=== PATIENT | female | born 1980 | race Caucasian/White ===

== ENCOUNTER → 2016-10-28 | Outpatient (CLI) | payer BC ==
[2016-10-28 08:07] LABS: Basophils % (A) 0 %; CH 30.9; CHCM 34.1; Eosinophils # (A) 0.1 k/uL (0-0.7); Eosinophils % (A) 2 %; HCT 39.3 % (34.0-46.0); HDW 2.49; Luc % (Auto) 2; Lymphocytes # (A) 1.8 k/uL (1.0-4.8); Lymphocytes % (A) 37 %; MCV 90.9 fL (80.0-100.0); Mean Platelet Volume 6.3; Monocytes # (A) 0.3 k/uL (0-1.0); Monocytes % (A) 6 %; Neutrophils # (A) 2.6 k/uL (1.3-7.7); Neutrophils % (A) 53 %; RBC 4.32 m/uL (3.80-5.40); RDW 12.2 % (11.5-15.5); WBC 4.9 k/uL (3.8-10.6); WBC (Perox) 5.43
[2016-10-28 08:18] LABS: ALT 49 U/L (9-52); AST 37 U/L (14-36); Alkaline Phosphatase 64 U/L (38-126); Anion Gap 12 mmol/L; Blood Urea Nitrogen 11 mg/dL (7-17); Calcium 9.5 mg/dL (8.4-10.2); Carbon Dioxide 28 mmol/L (22-30); Chloride 104 mmol/L (98-107); Cholesterol 206 mg/dL (<200); Glucose 90 mg/dL (74-99); HDL Cholesterol 61 mg/dL (40-60); Non-African American GFR(MDRD) >60 (>60 ml/min/1.73 sqM); Potassium 4.2 mmol/L (3.5-5.1); Sodium 144 mmol/L (137-145); Total Bilirubin 0.5 mg/dL (0.2-1.3); Total Protein 7.6 g/dL (6.3-8.2); Triglycerides 78 mg/dL (<150)
== END | disposition home or self-care (01) ==
LOC: LABWHC1 07:32
PROVIDERS: ATTEND Pediatrics
DX: Z00.01 Encounter for general adult medical examination with abnormal findings (principal); Z13.220 Encounter for screening for lipoid disorders
CPT/HCPCS: 36415; 80053; 80061; 85025

== ENCOUNTER → 2020-06-20 | Outpatient (CLI) | payer BC ==
--- NOTE | 2020-06-26 09:21 | MM ---
Reason for exam: screening (asymptomatic). Last mammogram was performed 4 years and 11 months ago. History: Benign excisional biopsy of the right breast, 2007. Taking hormonal contraceptives for 10 years beginning at age 17. Physical Findings: A clinical breast exam by your physician is recommended on an annual basis and results should be correlated with mammographic findings. MG 3D Screening Mammo W/Cad Bilateral CC, MLO, and XCCL view(s) were taken. Prior study comparison: July 09, 2015, mammogram. The breast tissue is heterogeneously dense. This may lower the sensitivity of mammography. No significant changes when compared with prior studies. ASSESSMENT: Negative, BI-RAD 1 RECOMMENDATION: Routine screening mammogram of both breasts in 1 year.
== END | disposition home or self-care (01) ==
LOC: RADMAMWWP 07:01
PROVIDERS: ATTEND Obstetrics & Gynecology
DX: Z12.31 Encounter for screening mammogram for malignant neoplasm of breast (principal)
CPT/HCPCS: 77063; 77067

== ENCOUNTER → 2020-09-17 | Outpatient (CLI) | payer BC ==
--- NOTE | 2020-09-17 12:37 | XR ---
EXAMINATION TYPE: XR chest 2V DATE OF EXAM: 09/17/2020 COMPARISON: NONE TECHNIQUE: PA and lateral views submitted. HISTORY: Cough FINDINGS: The lungs are clear and there is no pneumothorax, pleural effusion, or focal pneumonia. Heart size normal. No overt failure. IMPRESSION: 1. No acute process.
== END | disposition home or self-care (01) ==
LOC: RADXRMAIN 12:08
PROVIDERS: ATTEND Pediatrics
DX: R05 Cough (principal)
CPT/HCPCS: 71046

== ENCOUNTER → 2020-12-10 | Outpatient (CLI) | payer BC ==
--- NOTE | 2020-12-10 14:18 | MR ---
EXAMINATION TYPE: MR brain and iac wo/w con DATE OF EXAM: 12/10/2020 COMPARISON: CT brain February 27, 2014 HISTORY: Headache. Left-sided hearing loss. Otalgia for 3 months. TECHNIQUE: Multiplanar, multisequence images of the brain and brainstem along with internal auditory canals are all performed without and with IV contrast, utilizing 6,5 mL intravenous Gadavist . FINDINGS: Diffusion weighted images demonstrate no evidence of a recent infarct or other diffusion ab normality. There is no extra-axial fluid collection or significant white matter signal abnormality. The ventricular system and cisternal spaces are normal in size and appearance. The brain volume is age appropriate. Midline structures demonstrate normal morphology. The craniocervical junction appears within normal limits. Post contrast images demonstrate no abnormal enhancement. The dural venous sinuses appear pa tent. There is distortion from bilateral globes noted. Visualized paranasal sinuses are clear. No suspicious fluid signal bilateral mastoid air cells. Vestibulocochlear complexes are symmetric and felt within normal limits. No suspicious enhancing cerebellopontine angle mass identified bilaterall y. IMPRESSION: Fairly unremarkable study.
== END | disposition home or self-care (01) ==
LOC: RADMRIMAIN 07:07
PROVIDERS: ATTEND Nurse Practitioner Family
DX: R51.9 Headache, unspecified (principal); H91.90 Unspecified hearing loss, unspecified ear; H93.3X9 Disorders of unspecified acoustic nerve
CPT/HCPCS: 70553; A9585

== ENCOUNTER → 2021-08-11 | Outpatient (CLI) | payer BC ==
--- NOTE | 2021-08-12 10:27 | MM ---
Reason for exam: screening (asymptomatic). Last mammogram was performed 1 year and 2 months ago. History: Benign excisional biopsy of the right breast, 2007. Took hormonal contraceptives for 10 years beginning at age 17. Physical Findings: A clinical breast exam by your physician is recommended on an annual basis and results should be correlated with mammographic findings. MG 3D Screening Mammo W/Cad Bilateral CC and MLO view(s) were taken. Prior study comparison: June 20, 2020, bilateral MG 3d screening mammo w/cad. July 09, 2015, mammogram. The breast tissue is heterogeneously dense. This may lower the sensitivity of mammography. Focal asymmetry upper outer right breast zone B. ASSESSMENT: Incomplete: need additional imaging evaluation, BI-RAD 0 RECOMMENDATION: Special view mammogram of the right breast. If lesion persists on supplemental views, image directed ultrasound is recommended. [facility] will attempt to contact patient to return for supplemental views and ultrasound if indicated.
== END | disposition home or self-care (01) ==
LOC: RADMAMWWP 07:14
PROVIDERS: ATTEND Obstetrics & Gynecology
DX: Z12.31 Encounter for screening mammogram for malignant neoplasm of breast (principal)
CPT/HCPCS: 77063; 77067

== ENCOUNTER → 2021-08-13 | Outpatient (CLI) | payer BC ==
--- NOTE | 2021-08-13 13:35 | MM ---
Reason for exam: additional evaluation requested from abnormal screening. Last mammogram was performed less than 1 month ago. History: Benign excisional biopsy of the right breast, 2007. Took hormonal contraceptives for 10 years beginning at age 17. Physical Findings: Nurse did not find any significant physical abnormalities on exam. MG Work Up Mamm w CAD RT Spot compression CC, spot compression MLO, and LM view(s) were taken of the right breast. Prior study comparison: August 11, 2021, bilateral MG 3d screening mammo w/cad. June 20, 2020, bilateral MG 3d screening mammo w/cad. Nodularity persists upper outer quadrant 3.6cm from nipple. These results were verbally communicated with the patient and result sheet given to the patient on 08/13/21. ASSESSMENT: Incomplete: need additional imaging evaluation, BI-RAD 0 RECOMMENDATION: Ultrasound of the right breast.
--- NOTE | 2021-08-13 13:36 | USB ---
Reason for exam: additional evaluation requested from abnormal screening. History: Benign excisional biopsy of the right breast, 2007. Took hormonal contraceptives for 10 years beginning at age 17. US Breast Workup Limited RT Right limited breast ultrasound including focal area of concern, retroareolar and axilla demonstrates a 1.1 x 1.2 x 0.6cm lymph node at the axilla. These results were verbally communicated with the patient and result sheet given to the patient on 08/13/21. ASSESSMENT: Benign, BI-RAD 2 RECOMMENDATION: Return to routine screening mammogram schedule for both breasts.
== END | disposition home or self-care (01) ==
LOC: RADMAMWWP 07:00
PROVIDERS: ATTEND Obstetrics & Gynecology
DX: R92.8 Other abnormal and inconclusive findings on diagnostic imaging of breast (principal)
CPT/HCPCS: 77065

== ENCOUNTER → 2022-10-26 | Outpatient (CLI) | payer BC ==
--- NOTE | 2022-10-27 07:35 | MM ---
Reason for Exam: Screening (asymptomatic). Last mammogram was performed 1 year(s) and 3 month(s) ago. Patient History: Menarche at age 15. First Full-Term at age 27. Premenopausal. Hormonal Contraceptives, starting at age 17 for 10 years. 2007, Benign Excisional Biopsy on the right side. Last menstrual period: 10/22/2022 Risk Values: Maxine 5 year model risk: 1.1%. NCI Lifetime model risk: 12.1%. Prior Study Comparison: 07/09/2015 Screening Mammogram, Unknown. 06/20/2020 Bilateral Screening Mammogram, [facility]. 08/11/2021 Bilateral Screening Mammogram, [facility]. 08/13/2021 Right Diagnostic Mammogram, [facility]. Tissue Density: The breast tissue is heterogeneously dense. This may lower the sensitivity of mammography. Findings: Analyzed By CAD. There is no suspicious group of microcalcifications or new suspicious mass in either breast. Overall Assessment: Negative, BI-RAD 1 Management: Screening Mammogram of both breasts in 1 year. A clinical breast exam by your physician is recommended on an annual basis and results should be correlated with mammographic findings. [facility] will attempt to contact patient to return for supplemental views and ultrasound if indicated. Electronically signed and approved by: Morgan Candelaria DO
== END | disposition home or self-care (01) ==
LOC: RADMAMWWP 07:21
PROVIDERS: ATTEND Obstetrics & Gynecology
DX: Z12.31 Encounter for screening mammogram for malignant neoplasm of breast (principal); Z98.890 Other specified postprocedural states
CPT/HCPCS: 77063; 77067

== ENCOUNTER 2023-08-25 07:47 | Day surgery (SDC) | payer BC ==
--- NOTE | 2023-08-24 20:27 | P.HPOB ---
History of Present Illness H&P Date: 08/24/23 Chief Complaint: Menorrhagia with regular cycle, family planning This is a 43 y.o. female, 2, para 1, who presents for dilatation and curettage with hysteroscopy and Novasure endometrial ablation due to menorrhagia with regular cycle and laparoscopic bilateral salpingectomy for family planning. She complains of heavy, painful, and sometimes irregular menses. Menses are occurring about every 3-4 weeks. Pelvic ultrasound showed uterus measuring 7.3 x 4 x 3.8 cm with endometrial thickness of 0.5 cm and normal bilateral ovaries. OB Hx: . History of 1 vaginal delivery at term and 1 miscarriage. Care Rep Hx: No history of STDs Social Hx: . Works at [employer] Review of Systems Constitutional: Denies chills, Denies fever Eyes: denies blurred vision, denies pain Ears, nose, mouth and throat: Denies headache, Denies sore throat Cardiovascular: Denies chest pain, Denies shortness of breath Respiratory: Denies cough Gastrointestinal: Reports bloating, Reports constipation, Reports diarrhea, Reports heartburn, Reports nausea (occasional), Denies abdominal pain Genitourinary: Reports dysmenorrhea, Reports menorrhagia Menstruation: Reports period heavy Musculoskeletal: Denies myalgias Integumentary: Denies pruritus, Denies rash Neurological: Denies numbness, Denies weakness Psychiatric: Reports anxiety, Denies depression Past Medical History Past Medical History: GERD/Reflux Additional Past Medical History / Comment(s): hiatal hernia History of Any Multi-Drug Resistant Organisms: None Reported Past Surgical History: Breast Surgery Additional Past Surgical History / Comment(s): d&c, oral, R breast bx/benign Past Anesthesia/Blood Transfusion Reactions: Postoperative Nausea & Vomiting (PONV) Past Psychological History: Anxiety Smoking Status: Never smoker Past Alcohol Use History: Occasional Past Drug Use History: None Reported - Past Family History Mother Family Medical History: Cancer, Hypertension Father Family Medical History: Hypertension Medications and Allergies Home Medications Medication Instructions Recorded Confirmed Type Omeprazole [PriLOSEC] 20 mg PO AC-BRKFST 02/27/14 08/18/23 History FLUoxetine HCL [PROzac] 10 mg PO QAM 08/18/23 08/18/23 History Ferrous Sulfate [Iron (65 MG 325 mg PO QAM 08/18/23 08/18/23 History Elemental)] Magnesium 250 mg PO QAM 08/18/23 08/18/23 History Multivitamin [Multivitamins Adult 1 tab PO QAM 08/18/23 08/18/23 History Gummies] Lavelle-3/Dha/Epa/Fish Oil [Fish Oil 1,200 mg PO QAM 08/18/23 08/18/23 History EC 1,200 mg Softgel] Allergies Allergy/AdvReac Type Severity Reaction Status Date / Time No Known Allergies Allergy Verified 08/18/23 12:47 Exam Osteopathic Statement: *. No significant issues noted on an osteopathic structural exam other than those noted in the History and Physical/Consult. HEENT: within normal limits Heart: regular rate and rhythm Lungs: clear to auscultation bilaterally Abdomen: soft, non-tender Pelvic: uterus anteverted, non-tender, no adnexal masses or tenderness Extremities: negative Salvador's Assessment and Plan (1) Menorrhagia with regular cycle Status: Acute Code(s): N92.0 - EXCESSIVE AND FREQUENT MENSTRUATION WITH REGULAR CYCLE SNOMED Code(s): 019442102 (2) Family planning Status: Acute Code(s): Z30.09 - ENCOUNTER FOR OTH GENERAL CNSL AND ADVICE ON CONTRACEPTION SNOMED Code(s): 296840639 Plan: Proceed with dilatation and curettage with hysteroscopy and Novasure endometrial ablation and laparoscopic bilateral salpingectomy.
[~2023-08-25 07:47] MED LIST: Pre Op ABX Message 1 EACH MISC MISCELLANE ONE
[2023-08-25] MEDS ORDERED: LACTATED RINGERS 1,000 ML IV ONE (08:11)
[2023-08-25] MEDS ORDERED: LACTATED RINGERS 1,000 ML IV SCH (08:15)
[2023-08-25] MEDS ORDERED: DEXAMETHASONE SOD PHOSPHATE 4 MG/ML 1 ML VIAL IV ONE (08:15)
[2023-08-25] MEDS ORDERED: ONDANSETRON 4 MG/2 ML VIAL IVP ONE (08:15)
[2023-08-25] MEDS ORDERED: SCOPOLAMINE 1 MG/72 HR PATCH TRANSDERM ONE (08:38)
[2023-08-25] MEDS ORDERED: LIDOCAINE 1% INJ 10MG/ML (20 ML MDV) ONE (09:19)
[2023-08-25] MEDS ORDERED: PROPOFOL 10 MG/ML 20 ML VIAL IV ONE (09:19)
[2023-08-25] MEDS ORDERED: KETOROLAC 15 MG/ML 1 ML VIAL ONE (09:19)
[2023-08-25] MEDS ORDERED: SUCCINYLCHOLINE CHLORIDE 200 MG/10 ML VIAL IV ONE (09:19)
[2023-08-25] MEDS ORDERED: NEOSTIGMINE 1 MG/ML 10 ML VIAL ONE (09:19)
[2023-08-25] MEDS ORDERED: GLYCOPYRROLATE 0.2 MG/ML 2 ML VIAL ONE (09:19)
[2023-08-25] MEDS ORDERED: ROCURONIUM 10 MG/ML (5 ML VIAL) IV ONE (09:19)
[2023-08-25] MEDS ORDERED: MIDAZOLAM 2 MG/2 ML VIAL ONE (09:19)
[2023-08-25] MEDS ORDERED: fentaNYL (PF) 50 MCG/ML 2 ML AMP ONE (09:19)
[2023-08-25] MEDS ORDERED: BUPIVACAINE (PF) 0.5% 30 ML VIAL SQ ONE ×2 (09:48→10:21)
--- NOTE | 2023-08-25 10:29 | P.OP ---
Date of Procedure: 08/25/23 Preoperative Diagnosis: Menorrhagia with regular cycle Family planning Postoperative Diagnosis: Same Procedure(s) Performed: Dilation and curettage with hysteroscopy and NovaSure endometrial ablation Laparoscopic bilateral salpingectomy Anesthesia: SANCHO Surgeon: Stefanie Guerra Estimated Blood Loss (ml): 10 Pathology: other (Endometrial curettings, right and left fallopian tubes) Condition: stable Disposition: same day Indications for Procedure: This is a 43 y.o. female, 2, para 1, who presents for dilatation and curettage with hysteroscopy and Novasure endometrial ablation due to menorrhagia with regular cycle and laparoscopic bilateral salpingectomy for family planning. She complains of heavy, painful, and sometimes irregular menses. Menses are occurring about every 3-4 weeks. Pelvic ultrasound showed uterus measuring 7.3 x 4 x 3.8 cm with endometrial thickness of 0.5 cm and normal bilateral ovaries. Operative Findings: Uterus is anteverted, sounded to 8 cm. Cervix is sounded to 3 cm. Upon hysteroscopy, a dyssynchronous endometrial pattern was noted with possible polyp. Neither tubal ostia is completely visualized. Upon laparoscopy, normal uterus tubes and ovaries are noted. Description of Procedure: The patient is taken to the operating room. She is placed in the dorsal lithotomy position after general anesthesia was given. She is prepped and draped in the normal sterile fashion. Bladder is drained with a catheter and then removed. Pelvic exam is performed under anesthesia. Uterus is found to be anteverted with no adnexal masses. She is placed in slight Trendelenburg position. A right angle retractor is used to visualize the cervix. The anterior lip of the cervix is grasped with an Allis clamp. Cervix is sounded to 3 cm. Uterus is sounded to 8 cm. Cervix is gently dilated with Tang dilators until a hysteroscope could be passed. Hysteroscopy is performed using normal saline. The above noted findings are noted. Next a polyp forceps is introduced. A small amount of tissue was obtained. Next medium-sized size sharp curette was placed. A moderate amount of endometrial curettings were obtained. Next NovaSure array was inserted into the endometrial cavity. Length was set at 5 cm and width was determined to be 3.2 cm. Next cavity assessment was completed and passed on the first try. Next NovaSure array was fired at 88 W for 73 seconds. Next the array was removed, inspected and then discarded. Next the hysteroscope was reinserted. Uniform charring was noted. Pictures were taken. Hysteroscope was removed. Next a kroner uterine manipulator is inserted and balloon is inflated. Allis clamps was removed from the anterior lip of the cervix. Minimal bleeding was noted. All other instruments removed from the vagina. Attention is then turned to the abdomen. A small incision is made approximately 2 cm above the umbilicus and then a 5 mm disposable bladeless trocar is inserted under direct visualization with low-flow gas. Once inside, pneumoperitoneum is achieved. Patient was placed in slight Trendelenburg position. Next a small incision is made in the right side of the abdomen just below the umbilicus level and a 5 mm disposable bladeless trochars inserted under direct visualization. The same area on the left side of the abdomen is also cut with a small incision and then a 5 mm disposable bladeless trochars inserted under direct visu alization. The pelvic contents are inspected. The right fallopian tube was then grasped on the ends with a grasper and LigaSure is then fired along the mesosalpinx and the mesosalpinx is cut with the LigaSure. The entire tube is freed excellent hemostasis is noted. The tube is placed in the cul-de-sac and then the left fallopian tube is identified and grasped on the fimbriated end with a grasper. The LigaSure was then used to cauterize and cut along the mesosalpinx and then the entire tube is removed. Each tube was then pulled through the trocar and removed. Excellent hemostasis is noted. Pictures are taken. Pneumoperitoneum was then released and the trochars were all removed. Incision sites are then closed with 4-0 Vicryl suture in a subcuticular fashion. The incisions are then injected with half percent Marcaine and approximately 7 mL are used. Steri-Strips are placed and all instruments are correct. All sponge counts are correct. The patient is then taken to recovery room in stable condition.
[2023-08-25] MEDS: HYDROmorphone 0.5 MG/0.5 ML SYRINGE IVP PRN ×2 (10:55→11:08)
[2023-08-25 11:08] VITALS: TEMP 97.6
[2023-08-25 12:24] VITALS: BP 141/83; PULSE 74; RESP 16
== END 2023-08-25 12:33 | disposition home or self-care (01) ==
LOC: OR 07:47
PROVIDERS: ATTEND Obstetrics & Gynecology
DX: Z30.2 Encounter for sterilization (principal); N92.0 Excessive and frequent menstruation with regular cycle; K21.9 Gastro-esophageal reflux disease without esophagitis; K44.9 Diaphragmatic hernia without obstruction or gangrene; F41.9 Anxiety disorder, unspecified; F10.90 Alcohol use, unspecified, uncomplicated; Z80.9 Family history of malignant neoplasm, unspecified; Z79.899 Other long term (current) drug therapy; Z98.890 Other specified postprocedural states
CPT/HCPCS: 58661; 58563; 88305; 88302; J2250; J0330; J1100; J2710; J2405; J2001; J3010; J1885; J2704; J1170; J0665

== ENCOUNTER → 2023-11-11 | Outpatient (CLI) | payer BC ==
--- NOTE | 2023-11-11 16:14 | MM ---
Reason for Exam: Screening (asymptomatic). Last screening mammogram was performed 12 month(s) ago. Patient History: Menarche at age 15. First Full-Term at age 27. Premenopausal. Hormonal Contraceptives, starting at age 17 for 10 years. 2007, Benign Excisional Biopsy on the right side. Last menstrual period: 08/03/2023 Risk Values: Maxine 5 year model risk: 1.1%. NCI Lifetime model risk: 12.0%. Prior Study Comparison: 08/11/2021 Bilateral Screening Mammogram, [facility]. 08/13/2021 Right Diagnostic Mammogram, [facility]. 10/26/2022 Bilateral MG 3D screening mammo w/cad, [facility]. Tissue Density: There are scattered fibroglandular densities. Findings: Analyzed By CAD. There is no suspicious group of microcalcifications or new suspicious mass. Overall Assessment: Negative, BI-RAD 1 Management: Screening Mammogram of both breasts in [address] [facility] will attempt to contact patient to return for supplemental views and ultrasound if indicated. Patient should continue monthly self-breast exams. A clinical breast exam by your physician is recommended on an annual basis. This exam should not preclude additional follow-up of suspicious palpable abnormalities. Note on Maxine scores and lifetime risk: 1. A Maxine score greater than 3% is considered moderate risk. If this is the case, consider specialist referral to assess eligibility for a risk reducing agent. 2. If overall lifetime risk for the development of breast cancer is 20% or higher, the patient may qualify for future screening with alternating mammogram and breast MRI. Electronically signed and approved by: Morgan Candelaria DO
== END | disposition home or self-care (01) ==
LOC: RADMAMWWP 07:30
PROVIDERS: ATTEND Obstetrics & Gynecology
DX: Z12.31 Encounter for screening mammogram for malignant neoplasm of breast (principal)
CPT/HCPCS: 77063; 77067

== ENCOUNTER → 2025-02-07 | Outpatient (CLI) | payer MEDICAID ==
--- NOTE | 2025-02-07 07:27 | MM ---
Reason for Exam: Screening (asymptomatic). Last mammogram was performed 1 year(s) and 3 month(s) ago. Patient History: Menarche at age 15. First Full-Term at age 27. Premenopausal. Hormonal Contraceptives, starting at age 17 for 10 years. 2008, Benign Excisional Biopsy on the right side. Risk Values: Maxine 5 year model risk: 1.3%. NCI Lifetime model risk: 11.7%. Prior Study Comparison: 08/13/2021 Right Diagnostic Mammogram, [facility]. 10/26/2022 Bilateral MG 3D screening mammo w/cad, [facility]. 11/11/2023 Bilateral MG 3D screening mammo w/cad, [facility]. Tissue Density: There are scattered areas of fibroglandular density. Findings: Analyzed By CAD. There is no suspicious group of microcalcifications or new suspicious mass in either breast. Overall Assessment: Negative, BI-RAD 1 Management: Screening Mammogram of both breasts in 1 year. . Patient should continue monthly self-breast exams. A clinical breast exam by your physician is recommended on an annual basis. This exam should not preclude additional follow-up of suspicious palpable abnormalities. Note on Maxine scores and lifetime risk: 1. A Maxine score greater than 3% is considered moderate risk. If this is the case, consider specialist referral to assess eligibility for a risk reducing agent. 2. If overall lifetime risk for the development of breast cancer is 20% or higher, the patient may qualify for future screening with alternating mammogram and breast MRI. [facility], , 02/07/2025 7:22 AM. Electronically signed and approved by: Jamey Padilla M.D. Radiologis
== END | disposition home or self-care (01) ==
LOC: RADMAMWWP 06:56
PROVIDERS: ATTEND Family Medicine
DX: Z12.31 Encounter for screening mammogram for malignant neoplasm of breast (principal); R92.323 Mammographic fibroglandular density, bilateral breasts; Z92.0 Personal history of contraception
CPT/HCPCS: 77063; 77067

== ENCOUNTER 2025-02-22 09:43 | Day surgery (SDC) | payer MEDICAID ==
[2025-02-20 10:21] VITALS: BMI 24.6
[~2025-02-22 09:43] MED LIST changes: +LACTATED RINGERS 1,000 ML IV SCH; -Pre Op ABX Message 1 EACH MISC MISCELLANE ONE
[2025-02-22 10:17] VITALS: RESP 16; TEMP 98
[2025-02-22] MEDS: IV FLUID CONTINUATION 1,000 ML IV ONE (10:18)
[2025-02-22] MEDS ORDERED: LIDOCAINE 1% INJ 10MG/ML (20 ML MDV) ONE (10:46)
[2025-02-22] MEDS ORDERED: PROPOFOL 10 MG/ML 20 ML VIAL IV ONE (10:46)
--- NOTE | 2025-02-22 11:09 | P.PCN ---
Date of Procedure: 02/22/25 Procedure(s) Performed: Brief history: Patient is a pleasant 45-year-old white female scheduled for an elective upper endoscopy as well as colonoscopy as a part of evaluation of GERD/screening for colon cancer. Her grandpa was diagnosed with colon cancer at age 70. Procedure performed: Esophagogastroduodenoscopy Colonoscopy with biopsy and tattooing with Amy ink Preoperative diagnosis: GERD Screening for colon cancer/family history of colon cancer. Anesthesia: MAC Procedure: After informed consent was obtained from the patient was brought into the endoscopy unit and IV sedation was administered by anesthesia under continuous monitoring. Initially upper endoscopy was done. The Olympus GF 160 video endoscope was inserted inserted into the mouth and esophagus intubated without any difficulty and was gradually advanced into the stomach and duodenum and carefully examined. The bulb and second part of the duodenum appeared normal. The scope was then withdrawn into the stomach adequately insufflated with air and upon careful examination the antrum and body, cardia and fundus appeared normal. The scope was then withdrawn into the esophagus. Small hiatal hernia noted. The GE junction was located at 40 cm to the incisors. It appeared regular with no erythema erosions or ulcerations. Rest of the esophagus appeared normal. Patient tolerated the procedure well. At this time the patient continued to remain sedation. Initial digital rectal examination was normal. Olympus CF 160 video colonoscope was then inserted into the rectum and gradually advanced to the cecum without any difficulty. Careful examination was performed as the scope was gradually being withdrawn. The prep was excellent. The cecum, ascending colon, appeared normal. The hepatic flexure there was a 4 to 5 cm broad-based polyp with central depression and multiple biopsies were done from this area. Following this study was performed again. Transverse colon, descending colon, sigmoid colon and rectum appeared normal. Retroflexion was performed in the rectum and no lesions were noted. Patient tolerated the procedure well. Impression: 1. Upper endoscopy revealed small hiatal hernia but no evidence of esophagitis or Grant's esophagus 2. Colonoscopy revealed 4 to 5 cm broad-based polyp with central depression in the hepatic flexure status post multiple biopsies followed by tattooing with Amy ink.. Rest of the colon appeared normal. Recommendations: Findings of this examination were discussed with the patient as well as her family. She was advised to continue with Nexium 40 mg daily and follow antireflux measures. She was advised to follow with the biopsy results. Follow-up in the office in 1 week. Based on the biopsy results will discuss surgical intervention versus referral to advanced endoscopy team at [facility] for endoscopy polypectomy/EMR
[2025-02-22 11:33] VITALS: BP 134/88; PULSE 72
== END 2025-02-22 12:30 | disposition home or self-care (01) ==
LOC: ORWHC2ENDO 09:43
PROVIDERS: ATTEND Internal Medicine Gastroenterology
DX: Z12.11 Encounter for screening for malignant neoplasm of colon (principal); D12.3 Benign neoplasm of transverse colon; K21.9 Gastro-esophageal reflux disease without esophagitis; K44.9 Diaphragmatic hernia without obstruction or gangrene; Z80.0 Family history of malignant neoplasm of digestive organs
CPT/HCPCS: 81025; 45380; 43235; 45381; J2003; J2704; 88305

== ENCOUNTER → 2025-03-08 | Outpatient (CLI) | payer MEDICAID ==
--- NOTE | 2025-03-08 11:33 | CT ---
EXAMINATION TYPE: CT abdomen pelvis w con DATE OF EXAM: 03/08/2025 9:55 AM COMPARISON: None. CLINICAL INDICATION: Female, 45 years old with history of K63.5 POLYP OF COLON; POLYP OF COLON TECHNIQUE: CT of the abdomen and pelvis after IV contrast. Delayed images through the kidneys and cor onal/sagittal reconstructions performed. Contrast used:100 ml mL of Isovue 300 with IV Contrast, Oral contrast used: with Oral Contrast CT DLP: 665 mGycm, Automated exposure control for dose reduction was used. FINDINGS: LOWER CHEST: Some minimal strandy atelectasis left base. ABDOMEN LIVER: Unremarkable GALLBLADDER AND BILE DUCTS: Unremarkable. PANCREAS: Unremarkable. SPLEEN: Unremarkable. ADRENAL GLANDS: Unremarkable. KIDNEYS AND URETERS: No evidence of hydronephrosis or renal calculus. The ureters are unremarkable. PELVIS BLADDER: No evidence for wall thickening or mass given limitations of exam. REPRODUCTIVE: Uterus anteverted. Both ovaries visualized. No abnormal fluid collection pelvis or pelv ic lymphadenopathy. ABDOMEN & PELVIS STOMACH AND BOWEL: No evidence of bowel obstruction. Oral contrast progressed to the distal sigmoid c olon. No significant stool burden. There is a polypoid mass measuring up to 2.5 cm along the mid asce nding colon, refer to coronal image 37 and axial image 42. Normal appendix. No pericolonic inflammato ry change. PERITONEUM/RETROPERITONEUM: No evidence of pneumoperitoneum or free fluid. VASCULATURE: No evidence of aortic aneurysm. MUSCULOSKELETAL: Mild degenerative disc disease lower thoracic and upper lumbar spine. Mild facet art hropathy lower lumbar spine. LYMPH NODES: Some nonspecific prominent but nonenlarged lymph nodes right mid abdomen measuring up to 5 mm, likely reactive/post inflammatory. No mesenteric or retroperitoneal adenopathy by size criteri a. No pelvic adenopathy by size criteria. SOFT TISSUE/ABDOMINAL WALL: Unremarkable IMPRESSION: 1. Large 2.5 cm polyp/neoplasm along the posterior wall of the mid ascending colon. 2. No suspicious findings of metastatic disease. [facility], , 03/08/2025 11:31 AM
== END | disposition home or self-care (01) ==
LOC: RADCTMAIN 06:58
PROVIDERS: ATTEND Internal Medicine Gastroenterology
DX: K63.5 Polyp of colon (principal)
CPT/HCPCS: 74177; Q9967

== ENCOUNTER → 2025-04-01 | Outpatient (CLI) | payer MEDICAID | END | disposition home or self-care (01) | LOC: LABWHC1 12:48 | PROVIDERS: ATTEND Surgery Plastic and Reconstructive Surgery | DX: R07.89 Other chest pain (principal) | CPT/HCPCS: 36415; 93005 ==

== ENCOUNTER → 2025-04-08 | Outpatient (CLI) | payer MEDICAID ==
[2025-04-08 10:34] LABS: ALT 27 U/L (8-44); AST 25 U/L (13-35); Albumin 4.5 g/dL (3.8-4.9); Albumin/Globulin Ratio 1.61 Ratio (1.60-3.17); Alkaline Phosphatase 65 U/L (41-126); BUN/Creat Ratio 26.33 Ratio (12.00-20.00); Blood Urea Nitrogen 15.8 mg/dL (9.0-27.0); Calcium 9.6 mg/dL (8.7-10.3); Carbon Dioxide 25.1 mmol/L (21.6-31.8); Chloride 101 mmol/L (96-109); Globulin 2.8 g/dL (1.6-3.3); Glucose 82 mg/dL (70-110); Potassium 4.5 mmol/L (3.5-5.5); Sodium 138 mmol/L (135-145); Total Bilirubin 0.6 mg/dL (0.3-1.2); Total Protein 7.3 g/dL (6.2-8.2)
[2025-04-08 11:03] LABS: Basophils # (A) 0.02 X 10*3/uL (0.00-0.10); Basophils % (A) 0.3 %; Eosinophils # (A) 0.12 X 10*3/uL (0.04-0.35); Eosinophils % (A) 1.8 %; HCT 40.1 % (37.2-46.3); HGB 14.1 g/dL (12.0-15.0); Lymphocytes # (A) 1.95 X 10*3/uL (0.90-5.00); Lymphocytes % (A) 29.9 %; MCHC 35.2 g/dL (32.0-37.0); MCV 90.9 FL (80.0-97.0); Mean Platelet Volume 10.1 FL (9.5-12.2); Monocytes # (A) 0.51 X 10*3/uL (0.20-1.00); Monocytes % (A) 7.8 %; NRBC Per 100 WBC 0 X 10*3/uL (0.00-0.01); Neutrophils # (A) 3.91 X 10*3/uL (1.80-7.70); Neutrophils % (A) 59.9 %; Platelet Count 436 X 10*3/uL (140-440); RBC 4.41 X 10*6/uL (4.10-5.20); RDW 12.1 % (11.5-14.5); WBC 6.53 X 10*3/uL (4.50-10.00)
== END | disposition home or self-care (01) ==
LOC: LABWHC1 07:30
PROVIDERS: ATTEND Surgery Plastic and Reconstructive Surgery
DX: C18.9 Malignant neoplasm of colon, unspecified (principal)
CPT/HCPCS: 36415; 80053; 85025; 86850; 86900; 86901

== ENCOUNTER 2025-04-11 09:33 | Inpatient (IN) | payer MEDICAID ==
--- NOTE | 2025-04-11 08:45 | P.GSHP ---
History of Present Illness H&P Date: 04/11/25 CHIEF COMPLAINT: Colon cancer HISTORY OF PRESENT ILLNESS: The patient is a 45-year-old female recently diagnosed with ascending colon mass suspicious for colon cancer. She presents after optimization prior to surgery as well as a high-protein low carbohydrate 2-week diet. Endoscopic tattooing followed by colon resection were described. Patient presents for surgical resection. PAST MEDICAL HISTORY: Please see list. PAST SURGICAL HISTORY: Please see list. MEDICATIONS: Please see list. ALLERGIES: Please see list. SOCIAL HISTORY: No illicit drug use FAMILY HISTORY: No reports of Crohn disease or ulcerative colitis. REVIEW OF ORGAN SYSTEMS: CONSTITUTIONAL: Denies any fever or chills. HEENT: Denies any trouble with vision or nosebleeds. No difficulty swallowing. LYMPHATIC: The patient denies any lumps and bumps around the neck. ENDOCRINE: Has hypothyroidism. RESPIRATORY: Denies pneumonia. Denies any troubles with breathing or dyspnea on exertion. CARDIOVASCULAR: Denies any chest pain, palpitations, or recent heart attacks GASTROINTESTINAL: Has gastroesophageal reflux disease. New diagnosis colon cancer. GENITOURINARY: No blood in urine. MUSCULOSKELETAL: Has back pain, stiffness, joint arthritis. NEUROLOGIC: Denies any numbness or tingling along the distal extremities. No seizure disorders or headaches. PSYCHIATRIC: Denies depression or suidical ideation. HEMATOLOGIC: Denies any abnormal bleeding or bruising. PHYSICAL EXAM: VITAL SIGNS: Stable GENERAL: Well-developed pleasant in no acute distress. HEENT: No scleral icterus. Extraocular movements grossly intact. Moist buccal mucosa. NECK: Supple without lymphadenopathy. CHEST: Unlabored respirations. Equal bilateral excursions. CARDIOVASCULAR: Regular rate and rhythm. Distal 2+ pulses. ABDOMEN: Soft, nontender, nondistended. MUSCULOSKELETAL: No clubbing, cyanosis, or edema. NERUO: Cranial nerves II through XII grossly intact PSYCH: Alert and oriented to person place and time. REPORT: EKG reviewed without acute abnormalities ASSESSMENT: 1. Ascending cecal mass for colon cancer 2. Family history colon cancer PLAN: 1. Endoscopic tattooing for surgical section was described 2. Patient is elevated risk due to pre-existing comorbidities. 3. Inpatient hospitalization described. 4. Benefits and risk of right hemicolectomy described robotic assisted approach. 5. CBC CMP type and screen described Past Medical History Past Medical History: GERD/Reflux, Hyperlipidemia Additional Past Medical History / Comment(s): hiatal hernia, large polyp that needs to be surgically removed. History of Any Multi-Drug Resistant Organisms: None Reported Past Surgical History: Breast Surgery, Uterine Ablation Additional Past Surgical History / Comment(s): d&c, oral, R breast bx/benign, colonoscopy Past Anesthesia/Blood Transfusion Reactions: Postoperative Nausea & Vomiting (PONV) Smoking Status: Never smoker - Past Family History Mother Family Medical History: Cancer, Hypertension Father Family Medical History: Hypertension Medications and Allergies Home Medications Medication Instructions Recorded Confirmed Type Ferrous Sulfate [Iron (65 MG 325 mg PO QAM 08/18/23 04/10/25 History Elemental)] Multivitamin [Multivitamins Adult 1 tab PO QAM 08/18/23 04/10/25 History Gummies] Esomeprazole Magnesium [NexIUM] 40 mg PO DAILY 02/20/25 04/10/25 History FLUoxetine HCL [PROzac] 20 mg PO DAILY 02/20/25 04/10/25 History Fish Oil/Dha/Epa [Fish Oil 1,200 1 each PO DAILY 02/20/25 04/10/25 History mg Fish Oil] Simvastatin 10 mg PO HS 04/10/25 04/10/25 History Allergies Allergy/AdvReac Type Severity Reaction Status Date / Time No Known Allergies Allergy Verified 04/10/25 10:04
[~2025-04-11 09:33] MED LIST changes: -LACTATED RINGERS 1,000 ML IV SCH; +LIDOCAINE 1% (10MG/ML) FOR IV START INTRADERMA PRN
[2025-04-11] MEDS: LACTATED RINGERS 1,000 ML IV SCH (10:25)
[2025-04-11] MEDS ORDERED: PROPOFOL 10 MG/ML 20 ML VIAL IV ONE (10:28)
[2025-04-11 10:38] LABS: Basophils # (A) 0.02 10*3/uL (0.00-0.10); Basophils % (A) 0.2 %; Eosinophils # (A) 0.08 10*3/uL (0.04-0.35); HCT 40.2 % (37.2-46.3); HGB 14.5 g/dL (12.0-15.0); Lymphocytes # (A) 1.79 10*3/uL (0.90-5.00); Lymphocytes % (A) 22.3 %; MCH 32.2 pg (27.0-32.0); MCHC 36.1 g/dL (32.0-37.0); MCV 89.3 fL (80.0-97.0); Mean Platelet Volume 9.7 fL (9.5-12.2); Monocytes # (A) 0.57 10*3/uL (0.20-1.00); Monocytes % (A) 7.1 %; Neutrophils # (A) 5.55 10*3/uL (1.80-7.70); Neutrophils % (A) 69.3 %; Platelet Count 422 10*3/uL (140-440); RDW 12.1 % (11.5-14.5); WBC 8.02 10*3/uL (4.50-10.00)
[2025-04-11 10:55] LABS: ALT 28 U/L (4-34); AST 35 U/L (14-36); African American GFR (CKD) >90 (>60 ml/min/1.73 sqM); Albumin 4.8 g/dL (3.5-5.0); Alkaline Phosphatase 68 U/L (38-126); Anion Gap 12 mmol/L; Blood Urea Nitrogen 11 mg/dL (7-17); Calcium 9.7 mg/dL (8.4-10.2); Carbon Dioxide 24 mmol/L (22-30); Chloride 104 mmol/L (98-107); Glucose 85 mg/dL (74-99); Non-African American GFR(CKD) >90 (>60 ml/min/1.73 sqM); Potassium 3.9 mmol/L (3.5-5.1); Sodium 140 mmol/L (137-145); Total Bilirubin 0.5 mg/dL (0.2-1.3); Total Protein 7.7 g/dL (6.3-8.2)
--- NOTE | 2025-04-11 10:55 | P.PCN ---
Date of Procedure: 04/11/25 Description of Procedure: PREOPERATIVE DIAGNOSIS: Ascending colon adenoma/mass Family history colon cancer POSTOPERATIVE DIAGNOSIS: Ascending colon adenoma/mass Family history colon cancer OPERATION: Colonoscopy with submucosal injection tattoo, Amy ink, 4 cc SURGEON: Debbie Ortiz MD. ANESTHESIA: MAC. INDICATIONS: The patient is a 45-year-old female who presents with new diagnosis of high- grade dysplasia/ascending colon mass for cancer. She has family history of colon cancer.. Benefits and risks were described and informed consent was obtained. DESCRIPTION OF PROCEDURE: The patient had undergone Sutab prep. The patient had been brought into the operating room and laid in the left lateral decubitus position. After adequate intravenous sedation, the rectum was examined with 2% lidocaine jelly. External hemorrhoids were encountered. The rectal tone was within normal limits. No les ions were palpated in the rectal vault. An Olympus colonoscope was advanced to the ascending colon with visualization of 3 cm broad-based tubovillous adenoma. The prep was good. No scattered diverticulosis was encountered. No colonic polyps were found. No evidence of focal colitis was found. Retroflexion of the scope demonstrated grade 1 internal hemorrhoids without active bleeding or inflammation. The colon was desufflated. The patient had tolerated the procedure well. Withdrawal time was over 6 minutes. FINDINGS: Aronchick preparation quality scale 1+ (1-5) Internal hemorrhoids, grade 1 External prolapsed hemorrhoids, grade 1 No arteriovenous malformations. No focal colitis. Broad-based 3 cm tubulovillous ascending colon adenoma not amenable to endoscopic resection with injection of Amy ink submucosal, 4 cc RECOMMENDATIONS: Partial colon resection described for broadbase high-grade dysplasia ascending colon Inpatient hospitalization described
[2025-04-11] MEDS ORDERED: Antibiotics per Pharmacy 1 EACH MISC MISCELLANE PRN (10:56)
[2025-04-11] MEDS: SCOPOLAMINE 1 MG/72 HR PATCH TRANSDERM STA (12:16)
[2025-04-11] MEDS: SODIUM CHLORIDE 0.9% 1,000 ML IV SCH ×2 (12:16→13:55)
[2025-04-11] MEDS: NEOMYCIN 500 MG TAB PO SCH (12:47)
[2025-04-11] MEDS: ONDANSETRON 4 MG/2 ML VIAL IVP SCH (13:54)
[2025-04-11] MEDS: PANTOPRAZOLE 40 MG TABLET PO SCH (13:54)
[2025-04-11] MEDS: TEMAZEPAM 15 MG CAP PO ONE (22:53)
[2025-04-12] MEDS ORDERED: ONDANSETRON 4 MG/2 ML VIAL IVP PRN (05:00)
[2025-04-12] MEDS ORDERED: metroNIDAZOLE-NS PMX 500 MG in SALINE 1 100ML.BAG IVPB PRN (05:00)
[2025-04-12 06:40] LABS: Basophils # (A) 0.02 10*3/uL (0.00-0.10); Basophils % (A) 0.3 %; Eosinophils # (A) 0.12 10*3/uL (0.04-0.35); Eosinophils % (A) 1.7 %; HCT 33.9 % (37.2-46.3); HGB 11.9 g/dL (12.0-15.0); Lymphocytes # (A) 2.11 10*3/uL (0.90-5.00); Lymphocytes % (A) 30.1 %; MCH 31.8 pg (27.0-32.0); MCHC 35.1 g/dL (32.0-37.0); MCV 90.6 fL (80.0-97.0); Mean Platelet Volume 9.8 fL (9.5-12.2); Monocytes # (A) 0.51 10*3/uL (0.20-1.00); Monocytes % (A) 7.3 %; Neutrophils # (A) 4.23 10*3/uL (1.80-7.70); Neutrophils % (A) 60.5 %; Platelet Count 341 10*3/uL (140-440); RBC 3.74 10*6/uL (4.10-5.20); RDW 12.5 % (11.5-14.5)
[2025-04-12 06:53] LABS: ALT 22 U/L (4-34); AST 24 U/L (14-36); African American GFR (CKD) >90 (>60 ml/min/1.73 sqM); Albumin 3.6 g/dL (3.5-5.0); Albumin/Globulin Ratio 1.5; Alkaline Phosphatase 53 U/L (38-126); Anion Gap 12 mmol/L; Blood Urea Nitrogen 3 mg/dL (7-17); Calcium 8.3 mg/dL (8.4-10.2); Carbon Dioxide 18 mmol/L (22-30); Chloride 109 mmol/L (98-107); Globulin 2.4 g/dL; Glucose 81 mg/dL (74-99); Non-African American GFR(CKD) >90 (>60 ml/min/1.73 sqM); Potassium 3.6 mmol/L (3.5-5.1); Sodium 139 mmol/L (137-145); Total Bilirubin 0.4 mg/dL (0.2-1.3)
[2025-04-12] MEDS: IV FLUID CONTINUATION 1,000 ML IV ONE ×2 (08:14→13:29)
[2025-04-12] MEDS: ACETAMINOPHEN TAB 500 MG TAB PO PRN (09:00)
[2025-04-12] MEDS: MELOXICAM 7.5 MG TAB PO PRN (09:01)
[2025-04-12] MEDS: ALVIMOPAN 12 MG CAPSULE PO PRN (09:01)
[2025-04-12] MEDS: fentaNYL (PF) 50 MCG/ML 2 ML AMP IVP STA (09:26)
[2025-04-12] MEDS: MIDAZOLAM 2 MG/2 ML VIAL IV STA (09:26)
[2025-04-12] MEDS: HEPARIN SODIUM,PORCINE 5,000 UNIT/ML 1 ML VIAL SQ PRN (09:38)
[2025-04-12] MEDS ORDERED: ROCURONIUM 10 MG/ML (5 ML VIAL) IV ONE (09:48)
[2025-04-12] MEDS ORDERED: LIDOCAINE 1% INJ 10MG/ML (20 ML MDV) ONE (09:48)
[2025-04-12] MEDS ORDERED: NEOSTIGMINE 1 MG/ML 10 ML VIAL ONE (09:48)
[2025-04-12] MEDS ORDERED: DEXAMETHASONE SOD PHOSPHATE 4 MG/ML 1 ML VIAL ONE (09:48)
[2025-04-12] MEDS ORDERED: HYDROmorphone (PF) 1 MG/ML ONE (09:48)
[2025-04-12] MEDS ORDERED: fentaNYL (PF) 50 MCG/ML 2 ML AMP ONE (09:48)
[2025-04-12] MEDS ORDERED: MIDAZOLAM 2 MG/2 ML VIAL ONE (09:48)
[2025-04-12] MEDS ORDERED: ONDANSETRON 4 MG/2 ML VIAL ONE (09:48)
[2025-04-12] MEDS ORDERED: SUCCINYLCHOLINE CHLORIDE 200 MG/10 ML VIAL IV ONE (09:48)
[2025-04-12] MEDS ORDERED: SODIUM CHLORIDE 0.9% (PF) 10 ML VIAL ONE (09:48)
[2025-04-12] MEDS ORDERED: PHENYLEPHRINE 10 MG/ML VIAL ONE (09:48)
[2025-04-12] MEDS ORDERED: PROPOFOL 10 MG/ML 20 ML VIAL IV ONE (09:48)
[2025-04-12] MEDS ORDERED: GLYCOPYRROLATE 0.2 MG/ML 2 ML VIAL ONE (09:48)
[2025-04-12] MEDS: LIDOCAINE 1%-EPI 1:100,000 20 ML VIAL SQ ONE (10:35)
[2025-04-12] MEDS: LACTATED RINGERS 1,000 ML IV ONE (11:10)
--- NOTE | 2025-04-12 14:09 | P.ANPRN ---
Procedure Note - Anesthesia - Nerve Block Performed Bilateral Erector Spinae Single Time Out Performed: Yes (09) Date of Procedure: 04/12/25 Procedure Start Time: Procedure Stop Time: Location of Patient: PreOp Indication: Acute Post-Operative Pain, Requested by Surgeon Specifically requested for management of pain by : Debbie Ortiz Sedation Type: Sedate with meaningful contact maintained Preparation: Sterile Prep Position: Sitting Catheter: None Needle Types: Pajunk Needle Gauge: 21 Ultrasound used to visualize needle placement: Yes Ultrasound used to observe medication spread: Yes Injectate: 0.5% Ropivacaine (see comment for volume) (15CC+10CC NACL PF+DECADRON 4MG EACH SIDE) Blood Aspirated: No Pain Paresthesia on Injection Noted: No (15CC+10CC NACL PF+DECADRON 4MG EACH SIDE because increased work) Resistance on Injection: Normal Image Stored and Saved: Yes Events: Uneventful and Well Tolerated
[2025-04-12] MEDS ORDERED: HYDROmorphone 1 MG/ML 1 ML SYRINGE IVP PRN (14:27)
[2025-04-12] MEDS ORDERED: NALOXONE 0.4 MG/ML 1 ML VIAL IV PRN (15:03)
[2025-04-12] MEDS ORDERED: BENZOCAINE/MENTHOL LOZENG 1 EACH LOZENGE MUCOUS MEM PRN (15:05)
[2025-04-12] MEDS: METOCLOPRAMIDE 5 MG/ML 2 ML VIAL IVP PRN (15:45)
[2025-04-12] MEDS: metroNIDAZOLE-NS PMX 500 MG in SALINE 1 100ML.BAG IVPB SCH (18:48)
[2025-04-12] MEDS: FAMOTIDINE 20 MG/2 ML VIAL IV SCH (20:14)
[2025-04-12] MEDS: ALVIMOPAN 12 MG CAPSULE PO SCH (20:14)
[2025-04-12] MEDS: HEPARIN SODIUM,PORCINE 5,000 UNIT/ML 1 ML VIAL SQ SCH (20:17)
[2025-04-12] MEDS: fentaNYL PCA 500 MCG/50 ML BAG IV SCH (21:13)
[2025-04-13 08:59] VITALS: BP 118/73; PULSE 82; RESP 16; TEMP 98.2
--- NOTE | 2025-04-13 09:40 | P.PN ---
Subjective Progress Note Date: 04/13/25 CHIEF COMPLAINT: Ascending colon mass for malignancy HISTORY OF PRESENT ILLNESS: The patient is a 45-year-old female status post robotic right hemicolectomy 04/12/2025 for ascending colon mass suspicious for malignancy. This morning, she had a bowel movement. She is passing gas. Pain is well-controlled. She is tolerating diet. She is voiding spontaneously. She feels well to go home. ROS: No reports of nausea and vomiting. No bowel movements. No fevers or chills. No new chest pain. No productive sputum PHYSICAL EXAM: VITAL SIGNS: Reviewed CONSTITUTIONAL: Well developed and in no acute distress. EYES: Conjuctivae without sclera icterus. Extraocular movements grossly intact. HEAD, EARS, NOSE, THROAT: Moist buccal mucosa. Head is atraumatic, normocephalic. Hears conversational speech. No nasal drainage. RESPIRATORY: Non-labored respirations and equal bilateral excursions. CARDIOVASCULAR: Palpable 2+ radial pulses. ABDOMEN: Abdominal binder present. Incisions clean dry intact. MUSCULOSKELETAL: No gross deformity of the lower extremities noted. No clubbing. No cyanosis. SKIN: Good skin turgor. Well perfused. NEUROLOGIC: Cranial nerves II through XII grossly intact. No focal or lateralizing signs. PSYCH: Appropriate affect. Alert and oriented to person, place and time. CLINICAL LABS: Reviewed. No new labs today. ASSESSMENT: 1. Ascending colon mass 2. Status post right hemicolectomy PLAN: 1. Patient is doing very well. Recommend discharge, close outpatient follow- up. 2. Nonnarcotic pain management reviewed. 3. Recovery 4 to 6 weeks described prior to going back to work. Dictation was produced using [employer] dictation software. Please excuse any grammatical, word or spelling errors. Objective - Vital Signs Vital signs: Vital Signs Temp 98.2 F 04/13/25 07:36 Pulse 82 04/13/25 07:36 Resp 16 04/13/25 07:36 BP 118/73 04/13/25 07:36 Pulse Ox 99 04/13/25 07:36 FiO2 Intake & Output 04/12/25 04/13/25 04/13/25 18:59 06:59 18:59 Intake Total 2550 Output Total 780 Balance 1770 Intake: IV 2550 Output: Urine 750 Estimated Blood Loss 30 Other: Voiding Method Toilet Toilet # Voids 2 5 1 - Labs CBC & Chem 7: 04/12/25 05:53 04/12/25 05:53
--- NOTE | 2025-04-28 20:16 | P.OP ---
Date of Procedure: 04/12/25 Description of Procedure: SURGEON: PRAMOD CABEZAS MD Preoperative Diagnosis: 1. Ascending colon mass 2. Hyperlipidemia 3. Iron deficiency anemia 4. Family history colon cancer 5. Depressive disorder 6. Gastroesophageal reflux disease 7. Generalized anxiety disorder 8. Postop nausea vomiting Postoperative Diagnosis: 1. Ascending colon mass 2. Hyperlipidemia 3. Iron deficiency anemia 4. Family history colon cancer 5. Depressive disorder 6. Gastroesophageal reflux disease 7. Generalized anxiety disorder 8. Postop nausea vomiting Procedure(s) Performed: 1. Robot-assisted daVinci Xi laparoscopic extended right hemicolectomy Anesthesia: GETA, local, regional block Estimated Blood Loss (ml): 30 Condition: stable SPECIMENS REMOVED: terminal ileum and extended right colon en bloc, anastomosis COMPLICATIONS: None. Disposition: floor Operative Findings: 1. Liver surface unremarkable for hepatic nodules or metastases 2. More than 6 cm border obtained from cecum along ileum 3. No peritoneal metastases identified 4. Extended right hemicolectomy to mid transverse colon 5. Redundant hepatic flexure with moderate retroperitoneal attachments requiring additional 2.5 hours for dissection 6. Redundant colon at hepatic flexure, tattoo identified, no metastatic lesions INDICATIONS: The patient is a 45-year-old female who presents with cecal mass. Surgical intervention with colon resection was described in detail. Benefits and risks, including infection, injury to adjacent structures, open surgery possibility for additional surgery was discussed at length. Informed consent was obtained. All questions of the patient and family were answered. DESCRIPTION: Earlier the patient had undergone a bowel prep using the enhanced colon recovery program. The patient was transferred to the operating room and placed in supine position. After general anesthetic, a collins catheter was placed. The abdomen was prepped and draped in standard sterile fashion as Ioban was placed along the abdomen to minimize any contamination of skin floor. After a timeout protocol was performed, attention was then brought to the left upper quadrant whereby a 0 degree 5 mm laparoscopic trocar entry was performed. The abdominal cavity was entered and insufflated to 15 mmHg pressure, which was tolerated well. Diagnostic laparoscopy demonstrated no injury to bowel, viscera or mesentery. The liver was unremarkable for hepatic metastases. Next trochars were placed along the left lateral abdomen. Two robotic 8-mm trocars were placed along the left lower abdomen. A 12 mm port was placed along the left upper quadrant. Ports were placed 9 cm apart from each other including 15-20 cm away from the target anatomy of the right pelvis. The 5-mm port was exchanged for a 12 mm robotic port. The patient was then placed in right side up 7 and reverse Trendelenburg 7. The robotic da Roseann XI system was primed and docked from the left side of the patient. Using atraumatic graspers and vessel sealer, the robotic system was docked and primed as described. Instruments were interchanged by the assistant front end manager including scissors, needle driver/sales workers, robotic stapler and vessel sealer. Next, attention was brought to identify the cecum. A stay suture using 0 silk was placed along the anterior serosa of the along the terminal ileum. The terminal ileum and ascending colon mesentery was mobilized using a vessel sealer whereby the colon was marked and tagged. The redundant hepatic flexure with moderate retroperitoneal attachments and dissection is performed for additional 2.5 hours. The colon was prepared for resection along the mid transverse colon including for resection along the terminal ileum. Using robot stapler 60 mm blue load, the distal ileum was divided 6 centimeters proximal to the ileocecal valve. The mesentery of the ascending colon was mobilized towards the midline using a vessel sealer. The right colon was mobilized to the mid transverse colon and prepared for resection. The colon was divided using 60 mm green loads. The rest of the colon mesentery was mobilized using vessel sealer including using blunt dissection. The ascending colon was mobilized from proximal to distal with the meeting point of the hepatic flexure. The vascular pedicle of the ileocolic artery was controlled using vessel sealer. The mid transverse colon and distal ileum was brought in a side to side antiperistaltic anastomotic fashion after placing interrupted sutures along the proposed nela-lumen using 3-0 silk. A colotomy and enterotomy was prepared along both limbs along the antimesenteric border. Next, 60 mm green stapler loads were fired to create the nela-lumen and hemostatic. The nela-lumen was reapproximated using 3-0 silk followed by 60 mm green loads for closure of the enterostomy. The mesenteric defect was closed using 2-0 VLOC to prevent internal hernia. All needles and sponges were removed from the abdominal cavity. Next, a 15 mm Endo Catch bag was placed by the assistant front end manager through the 12 mm trocar of the left upper quadrant. Specimen was placed. The robot was undocked. I re-scrubbed into the case. Via the 12 mm port of the left upper quadrant, the right colon was removed after widening the skin incision to 3-cm using 15-mm Endo Catch bag. The fascial defect was oversewn using 0 Vicryl and Dick Mejias. Next all pneumoperitoneum was evacuated from the abdominal cavity. The 8-mm trocar sites were reapproximated using 4-0 Monocryl in an interrupted subcuticular fashion. Local anesthetic was infiltrated to all wounds for postop analgesia. All incisions were also cleansed with diluted hydrogen peroxide. Liquid was applied to the rest of the skin incisions. The patient had tolerated the procedure well. The patient was extubated successfully. Intraoperative photos were reviewed with the patient's family who were overall pleased with the level of care. The patient was transferred to the postanesthesia care unit in stable condition.
--- NOTE | 2025-04-28 20:21 | P.DS ---
Providers Date of admission: 04/11/25 09:34 Expected date of discharge: 04/13/25 Attending physician: Debbie Ortiz Consults: 04/11/25 09:09 Consult Physician Routine Consulting Provider: [facility] Consult Reason/Comments: Abdominal wall block Do you want consulting provider notified?: Yes Primary care physician: [facility] Course: Postoperative Diagnosis: 1. Ascending colon mass 2. Hyperlipidemia 3. Iron deficiency anemia 4. Family history colon cancer 5. Depressive disorder 6. Gastroesophageal reflux disease 7. Generalized anxiety disorder 8. Postop nausea vomiting COURSE: The patient is a 45-year-old female who presents with cecal mass. Patient had a colonoscopy with submucosal injection. Patient underwent extended right hemicolectomy. Postoperatively, pain was tolerated. She was voiding. She was tolerating diet. Patient was stable for discharge. Procedures: OPERATION: Colonoscopy with submucosal injection tattoo, Amy ink, 4 cc Procedure(s) Performed: 1. Robot-assisted daVinci Xi laparoscopic extended right hemicolectomy Anesthesia: GETA, local, regional block Estimated Blood Loss (ml): 30 Condition: stable SPECIMENS REMOVED: terminal ileum and extended right colon en bloc, anastomosis COMPLICATIONS: None. Disposition: floor Operative Findings: 1. Liver surface unremarkable for hepatic nodules or metastases 2. More than 6 cm border obtained from cecum along ileum 3. No peritoneal metastases identified 4. Extended right hemicolectomy to mid transverse colon 5. Redundant hepatic flexure with moderate retroperitoneal attachments requiring additional 2.5 hours for dissection 6. Redundant colon at hepatic flexure, tattoo identified, no metastatic lesions Patient Condition at Discharge: Good Plan - Discharge Summary Discharge Rx Participant: Yes New Discharge Prescriptions: New Ibuprofen [Motrin] 600 mg PO Q8HR PRN #30 tab PRN Reason: Pain Simethicone 40 mg/0.6 ml Drops [Mylicon Drops] 40 mg PO Q6HR PRN #30 ml PRN Reason: Abdominal Distention Acetaminophen Tab [Tylenol Tab] 1,000 mg PO Q6HR PRN #30 tablet PRN Reason: Pain Cyclobenzaprine [Flexeril] 10 mg PO TID #30 tab Continue Multivitamin [Multivitamins Adult Gummies] 1 tab PO QAM Esomeprazole Magnesium [NexIUM] 40 mg PO DAILY Fish Oil/Dha/Epa [Fish Oil 1,200 mg Fish Oil] 1 each PO DAILY Simvastatin 10 mg PO HS Ferrous Sulfate [Iron (65 MG Elemental)] 325 mg PO QAM FLUoxetine HCL [PROzac] 20 mg PO DAILY Discharge Medication List Ferrous Sulfate [Iron (65 MG Elemental)] 325 mg PO QAM 08/18/23 [History] Multivitamin [Multivitamins Adult Gummies] 1 tab PO QAM 08/18/23 [History] Esomeprazole Magnesium [NexIUM] 40 mg PO DAILY 02/20/25 [History] FLUoxetine HCL [PROzac] 20 mg PO DAILY 02/20/25 [History] Fish Oil/Dha/Epa [Fish Oil 1,200 mg Fish Oil] 1 each PO DAILY 02/20/25 [History] Simvastatin 10 mg PO HS 04/10/25 [History] Acetaminophen Tab [Tylenol Tab] 1,000 mg PO Q6HR PRN #30 tablet 04/13/25 [Rx] Cyclobenzaprine [Flexeril] 10 mg PO TID #30 tab 04/13/25 [Rx] Ibuprofen [Motrin] 600 mg PO Q8HR PRN #30 tab 04/13/25 [Rx] Simethicone 40 mg/0.6 ml Drops [Mylicon Drops] 40 mg PO Q6HR PRN #30 ml 04/13/25 [Rx] Follow up Appointment(s)/Referral(s): Debbie Ortiz MD [STAFF PHYSICIAN] - 04/16/25 6:45 pm Patient Instructions/Handouts: Colectomy Diet (ED), Laparoscopic Bowel Resection (GEN) Activity/Diet/Wound Care/Special Instructions: Continue protein shakes at home for optimal recovery EXPECT BOWEL MOVEMENT WITH BLOOD FOR 1 WEEK, 04/19/2025 NO LONG DRIVES OR AIRPLANE RIDES OVER 2 HOURS FOR THE NEXT 2 WEEKS, April 27 TO HIGH RISK OF PULMONARY EMBOLISM/DVTs May drive after 24 to 48 hours after recovery from anesthesia. Wear abdominal binder for comfort. No lifting over 4 pounds in 4 weeks, May 12 April 27 May shower. No bath tub soaks for two weeks until April 27 Avoid steak, tough meats and nuts, broccoli, seeds such as raspberry seeds. See diverticulitis, low fiber, colectomy diet Use Tylenol and ibuprofen scheduled for the next 24-48 hours for best pain relief. Use ice along incisions for today to prevent swelling. Discharge Disposition: HOME SELF-CARE
== END 2025-04-13 10:51 | disposition home or self-care (01) | DRG 331 ==
LOC: ORWHC2ENDO 09:33 → 4SSUR 09:34
PROVIDERS: ADMIT Surgery Plastic and Reconstructive Surgery; ATTEND Surgery Plastic and Reconstructive Surgery
PROC: 3E0H8KZ Introduction of Other Diagnostic Substance into Lower GI, Via Natural or Artificial Opening Endoscopic (ICD-10-PCS; principal; 2025-04-11 10:35)
PROC: 0DTB4ZZ Resection of Ileum, Percutaneous Endoscopic Approach (ICD-10-PCS; 2025-04-12)
PROC: 0DTF4ZZ Resection of Right Large Intestine, Percutaneous Endoscopic Approach (ICD-10-PCS; 2025-04-12)
PROC: 8E0W4CZ Robotic Assisted Procedure of Trunk Region, Percutaneous Endoscopic Approach (ICD-10-PCS; 2025-04-12)
DX: D12.2 Benign neoplasm of ascending colon (principal); E78.5 Hyperlipidemia, unspecified; K64.0 First degree hemorrhoids; K64.8 Other hemorrhoids; K64.4 Residual hemorrhoidal skin tags; Z90.49 Acquired absence of other specified parts of digestive tract; Z82.49 Family history of ischemic heart disease and other diseases of the circulatory system; Z79.899 Other long term (current) drug therapy
CPT/HCPCS: 45378; 64468; 80053; 81025; 85025; 86850; 86900; 86901; 88309